=== PATIENT | male | born 1975 | race American Indian/Alaskan Native ===

== ENCOUNTER 2020-09-30 23:01 | Emergency (ER) | payer SELFPAY ==
[2020-09-30 23:11] VITALS: BP 124/77
--- NOTE | 2020-09-30 23:24 | Emergency Department Report ---
ED Male HPI - General Chief complaint: Abdominal Pain Stated complaint: ABDOMINAL PAIN/JESU PAIN Source: patient Mode of arrival: Ambulatory Limitations: No Limitations - History of Present Illness Initial comments: Patient is a 45-year-old -[place] male with no past medical history presents to the ED with complaint of acute onset persistent severe painful penile lesions with purulent discharge x 3 days after having unprotected sexual intercourse. Patient states that he suspected that he may have had abrasions on his penile shaft during sexual intercourse. Patient denies dyspnea, chest pain, cough, dizziness, fever, chills, cough, sore throat, dysuria, back pain, testicular pain, hematuria or abdominal pain, nausea and vomiting. MD Complaint: dysuria, other (Penile pain due erythematous rashes) -: Sudden, days(s) (3) Location: penis Radiation: none Severity: moderate Severity scale (0 -10): 5 Quality: aching, burning, sharp Consistency: constant Improves with: none Worsens with: none denies other symptoms, rash (erythematous maculopapular rashes on the penile shaft), dysuria. denies: discharge, swelling, mass, urinary retention, blood in urine, fever, nausea/vomiting, other - Related Data Previous Rx's Medication Instructions Recorded Last Taken Type Acyclovir 400 mg PO Q8H #30 tablet 09/30/20 Unknown Rx Acyclovir [Acyclovir Ointment] 1 applicatio TP 5XD #1 tube 09/30/20 Unknown Rx Doxycycline Hyclate 100 mg PO Q12H #20 tablet. 09/30/20 Unknown Rx Ibuprofen [Motrin] 600 mg PO Q8H PRN #24 tablet 09/30/20 Unknown Rx Allergies Allergy/AdvReac Type Severity Reaction Status Date / Time No Known Allergies Allergy Verified 09/30/20 23:08 ED Review of Systems ROS: Stated complaint: ABDOMINAL PAIN/JESU PAIN Other details as noted in HPI Constitutional: denies: chills, fever Eyes: denies: eye pain, eye discharge, vision change ENT: denies: ear pain, throat pain Respiratory: denies: cough, shortness of breath, wheezing Cardiovascular: denies: chest pain, palpitations Endocrine: no symptoms reported Gastrointestinal: denies: abdominal pain, nausea, diarrhea Genitourinary: dysuria, other (penile pain due to erythematous maculopapular lesions on shaft and prepuce). denies: urgency Musculoskeletal: denies: back pain, joint swelling, arthralgia Skin: rash (Erythematous maculopapular lesions on penile shaft and prepuce). denies: lesions Neurological: denies: headache, weakness, paresthesias Psychiatric: denies: anxiety, depression Hematological/Lymphatic: denies: easy bleeding, easy bruising ED Past Medical Hx - Past Medical History Previous Medical History?: No - Surgical History Past Surgical History?: Yes Additional Surgical History: hernia - Social History Smoking Status: Never Smoker Substance Use Type: Alcohol - Medications Home Medications: Home Medications Medication Instructions Recorded Confirmed Last Taken Type Acyclovir 400 mg PO Q8H #30 tablet 09/30/20 Unknown Rx Acyclovir [Acyclovir Ointment] 1 applicatio TP 5XD #1 tube 09/30/20 Unknown Rx Doxycycline Hyclate 100 mg PO Q12H #20 tablet. 09/30/20 Unknown Rx Ibuprofen [Motrin] 600 mg PO Q8H PRN #24 tablet 09/30/20 Unknown Rx ED Physical Exam - General Limitations: No Limitations General appearance: alert, in no apparent distress - Head Head exam: Present: atraumatic, normocephalic, normal inspection - Eye Eye exam: Present: normal appearance, PERRL, EOMI Pupils: Present: normal accommodation - ENT ENT exam: Present: normal exam, normal orophraynx, mucous membranes moist, TM's normal bilaterally, normal external ear exam - Neck Neck exam: Present: normal inspection, full ROM - Respiratory Respiratory exam: Present: normal lung sounds bilaterally. Absent: respiratory distress, wheezes, rales, rhonchi, stridor, chest wall tenderness, accessory muscle use, decreased breath sounds, prolonged expiratory - Cardiovascular Cardiovascular Exam: Present: normal rhythm, bradycardia, normal heart sounds. Absent: tachycardia, systolic murmur, diastolic murmur, rubs, gallop - GI/Abdominal GI/Abdominal exam: Present: soft, normal bowel sounds. 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 Absent: tenderness, CVA tenderness (R), CVA tenderness (L), muscle spasm, paraspinal tenderness - Neurological Exam Neurological exam: Present: alert, oriented X3, CN II-XII intact, normal gait, reflexes normal - Psychiatric Psychiatric exam: Present: normal affect, normal mood - Skin Skin exam: Present: warm, dry, intact, normal color, rash (Erythematous maculopapular lesions on penile shaft with purulent with tenderness), erythema, vesicles ED Course Vital Signs 09/30/20 23:10 Temperature 97.8 F Pulse Rate 54 L Respiratory 16 Rate Blood Pressure 124/77 O2 Sat by Pulse 98 Oximetry ED Medical Decision Making - Medical Decision Making This is a 45-year-old -[place] male with no past medical history presents to the ED with complaint of acute onset persistent severe painful penile lesions with purulent discharge x 3 days after having unprotected sexual intercourse. Patient states that he suspected that he may have had abrasions on his penile shaft during sexual intercourse. In the ED, patient is alert and oriented x 3 and is in no acute distress. Patient was discharged home on medications based on history and physical exam findings. Patient was discharged home and advised to follow up with the [facility] Dept for further STD testing or return to the ED immediately if symptoms get worse - Differential Diagnosis Genital herpes; Folliculitis; cellulitis; Abscess; STD Critical care attestation.: If time is entered above; I have spent that time in minutes in the direct care of this critically ill patient, excluding procedure time. ED Disposition Clinical Impression: Genital herpes simplex type 2, Acute folliculitis Disposition: DC-01 TO HOME OR SELFCARE Is pt being admited?: No Does the pt Need Aspirin: No Condition: Stable Additional Instructions: Take medications with food, drink plenty of lfuids and follow up with your Primary Care Physician or [facility] Dept in 7-10 days for reev aluation and further STD testing including HIV and Syphilis. Return to the ED immediately if symptoms get worse. Prescriptions: Acyclovir 400 mg PO Q8H #30 tablet Acyclovir [Acyclovir Ointment] 1 applicatio TP 5XD #1 tube Doxycycline Hyclate 100 mg PO Q12H #20 tablet. Ibuprofen [Motrin] 600 mg PO Q8H PRN #24 tablet PRN Reason: Pain Referrals: [facility] [Outside] - 7-10 days Time of Disposition: 23:22 Print Language: MONGOLIAN
== END 2020-09-30 23:59 | disposition home or self-care (01) ==
LOC: ED 23:01
DX: A60.00 Herpesviral infection of urogenital system, unspecified (principal); L73.9 Follicular disorder, unspecified; Z79.899 Other long term (current) drug therapy; Z98.890 Other specified postprocedural states
CPT/HCPCS: 99282

== ENCOUNTER 2021-07-21 09:29 | Emergency (ER) | payer SELFPAY ==
[2021-07-21 09:36] VITALS: BP 132/82
--- NOTE | 2021-07-21 11:56 | Emergency Department Report ---
ED Male HPI - General Chief complaint: Chest Pain Stated complaint: CHEST/ABD PAIN, BLOOD IN STOOL Time Seen by Provider: 07/21/21 10:38 Source: patient Mode of arrival: Ambulatory Limitations: No Limitations - History of Present Illness Initial comments: 46-year-old -[place] male presents to the emergency room complaining of abdominal pain for 2 years. Intermittent chest pain for few weeks and blood in stools for 2 weeks. Patient states his main concern is the blood in his stool. Patient admits to having some bright blood and then 2 days ago he had some tarry dark stool. Patient denies any past medical history currently takes no meds has no known drug allergies. Patient does not have a primary care provider. Patient states he has been avoiding seeing a doctor but now feels he may have cancer. Patient has tried nothing [id number]. Patient states that when he has hard stools when he sees the bright red blood. Patient is concerned he may have a hemorrhoid but has not checked. - Related Data Previous Rx's Medication Instructions Recorded Last Taken Type Acyclovir 400 mg PO Q8H #30 tablet 09/30/20 Unknown Rx Acyclovir [Acyclovir Ointment] 1 applicatio TP 5XD #1 tube 09/30/20 Unknown Rx Doxycycline Hyclate 100 mg PO Q12H #20 tablet. 09/30/20 Unknown Rx Ibuprofen [Motrin] 600 mg PO Q8H PRN #24 tablet 09/30/20 Unknown Rx Allergies Allergy/AdvReac Type Severity Reaction Status Date / Time No Known Allergies Allergy Verified 07/21/21 09:36 ED Review of Systems ROS: Stated complaint: CHEST/ABD PAIN, BLOOD IN STOOL Other details as noted in HPI ED Past Medical Hx - Surgical History Additional Surgical History: hernia - Social History Smoking Status: Never Smoker Substance Use Type: Alcohol - Medications Home Medications: Home Medications Medication Instructions Recorded Confirmed Last Taken Type Acyclovir 400 mg PO Q8H #30 tablet 09/30/20 Unknown Rx Acyclovir [Acyclovir Ointment] 1 applicatio TP 5XD #1 tube 09/30/20 Unknown Rx Doxycycline Hyclate 100 mg PO Q12H #20 tablet. 09/30/20 Unknown Rx Ibuprofen [Motrin] 600 mg PO Q8H PRN #24 tablet 09/30/20 Unknown Rx ED Physical Exam - General Limitations: No Limitations General appearance: alert, in no apparent distress - Head Head exam: Present: atraumatic, normocephalic - Eye Eye exam: Present: normal appearance - ENT ENT exam: Present: mucous membranes moist - Neck Neck exam: Present: normal inspection - Respiratory Respiratory exam: Present: normal lung sounds bilaterally. Absent: respiratory distress - Cardiovascular Cardiovascular Exam: Present: regular rate, normal rhythm. Absent: systolic murmur, diastolic murmur, rubs, gallop - GI/Abdominal GI/Abdominal exam: Present: soft, normal bowel sounds - Rectal Rectal exam: Present: normal inspection, normal rectal tone, heme (+) stool, hemorrhoids - Extremities Exam Extremities exam: Present: normal inspection - Back Exam Back exam: Present: normal inspection - Neurological Exam Neurological exam: Present: alert, oriented X3, normal gait - Psychiatric Psychiatric exam: Present: normal affect, normal mood - Skin Skin exam: Present: warm, dry, intact, normal color. Absent: rash ED Course Vital Signs 07/21/21 09:35 Temperature 98.1 F Pulse Rate 48 L Respiratory 14 Rate Blood Pressure 132/82 [Left] O2 Sat by Pulse 100 Oximetry ED Medical Decision Making - Lab Data Result diagrams: 07/21/21 11:09 07/21/21 11:09 - Medical Decision Making 46-year-old -[place] male presents to the emergency room complaining of abdominal pain for 2 years. Intermittent chest pain for few weeks and blood in stools for 2 weeks. Patient states his main concern is the blood in his stool. Patient admits to having some bright blood and then 2 days ago he had some tarry dark stool. Patient denies any past medical history currently takes no meds has no known drug allergies. Patient does not have a primary care provider. Patient states he has been avoiding seeing a doctor but now feels he may have cancer. Patient has tried nothing [id number]. Patient states that when he has hard stools when he sees the bright red blood. Patient is concerned he may have a hemorrhoid but has not checked. CBC CMP has been ordered. Stool guaiac is been ordered obtained by this provider sent. Critical care attestation.: If time is entered above; I have spent that time in minutes in the direct care of this critically ill patient, excluding procedure time. ED Disposition Clinical Impression: Hemorrhoidal skin tags, Bright red blood per rectum Disposition: HOME / SELF CARE / HOMELESS Is pt being admited?: No Does the pt Need Aspirin: No Condition: Stable Instructions: Hemorrhoids, [id number] Additional Instructions: Labs are stable. I recommend a colonoscopy. Also recommend for you to follow-up with a primary care provider. I have listed their information below for your convenience. Referrals: PRIMARY MD SARITA [Primary Care Provider] - 3-5 Days [facility] [Provider Group] - 3-5 Days MAY LAU MD [Staff Physician] - 3-5 Days Forms: Work/School Release Form(ED) Time of Disposition: 13:27
[2021-07-21 12:05] LABS: Hematocrit 50.3 % (35.5-45.6); Hemoglobin 16.6 gm/dl (11.8-15.2); Mean Corpuscular HGB Conc 33 % (32-34); Mean Corpuscular Volume 97 fl (84-94); Platelet Count 229 K/mm3 (140-440); Red Cell Distribution Width 12.3 % (13.2-15.2)
[2021-07-21 12:11] LABS: Bilirubin,Urine NEG (Negative); Blood,Urine NEG (Negative); Color,Urine Yellow (Yellow); Mucus,Urine 1+ /HPF; Protein,Urine <15 mg/dL mg/dL (Negative); RBC,Urine < 1.0 /HPF (0.0-6.0); Urobilinogen,Urine < 2.0 mg/dL (<2.0)
[2021-07-21 13:24] LABS: Alanine Aminotransferase 70 units/L (7-56); Albumin 4.7 g/dL (3.9-5); BUN/Creatinine Ratio 13; Blood Urea Nitrogen 14 mg/dL (9-20); Calcium 9.8 mg/dL (8.4-10.2); Hemolysis Index 6
--- NOTE | 2021-07-22 12:20 | Electrocardiograph Report ---
[facility] Test Date: 2021-07-21 Test Time: 09:45:59 Pat Name: SYLVIA RAND Department: Room: Gender: M Shift Coordinator: RIGO : 1975 Requested By: PATRICIA ALMENDAREZ Order Number: [id number] Reading MD: Cliff Hernandez Measurements Intervals [place] Rate: 46 P: 40 MN: 169 QRS: 15 QRSD: 87 T: 40 QT: 443 QTc: 387 Interpretive Statements Sinus bradycardia No previous ECG available for comparison Electronically Signed On 07-22-2021 12:20:08 EST by Cliff Hernandez
== END 2021-07-21 14:05 | disposition home or self-care (01) ==
LOC: ED 09:29
DX: K64.4 Residual hemorrhoidal skin tags (principal); R07.89 Other chest pain; Z72.89 Other problems related to lifestyle; Z79.899 Other long term (current) drug therapy
CPT/HCPCS: 36415; 80053; 81001; 82271; 85027; 93005; 99283